=== PATIENT | male | born 1980 | race American Indian/Alaskan Native ===

== ENCOUNTER 2020-11-18 12:09 | Emergency (ER) | payer SELFPAY ==
[~2020-11-18] VITALS: Ht 167.6 cm; Wt 81.7 kg
[2020-11-18 12:38] LABS: BASOPHILS ABSOLUTE AUTO 0.06 K/mm3 (0.00-0.23); BASOPHILS PERCENT AUTO 0 % (0-2); EOSINOPHILS PERCENT AUTO 0 % (0-6); Hematocrit 47.4 % (37.0-53.0); IMMATURE GRAN ABSOLUTE AUTO 0.17 K/mm3 (0.00-0.10); IMMATURE GRAN PERCENT AUTO 1 % (0-1); LYMPHOCYTES ABSOLUTE AUTO 1.56 K/mm3 (0.84-5.20); LYMPHOCYTES PERCENT AUTO 11 % (21-46); MONOCYTES ABSOLUTE AUTO 0.67 K/mm3 (0.16-1.47); MONOCYTES PERCENT AUTO 5 % (4-13); Mean Corpuscular HGB 30.2 pg (26.0-34.0); Mean Corpuscular HGB Conc 33.8 g/dL (31.5-36.5); Mean Corpuscular Volume 89 fL (80-100); Mean Platelet Volume 9.6 fL (9.1-12.4); NEUTROPHILS ABSOLUTE AUTO 11.54 K/mm3 (1.96-9.15); NEUTROPHILS PERCENT AUTO 83 % (41-73); Platelet Count 310 K/mm3 (150-400); RDW Coefficient Variation 12.3 % (11.7-14.2); RDW Standard Deviation 40.5 fL (35.1-46.3)
[2020-11-18 13:02] LABS: Alanine Aminotransfer (ALT/SGP 38 U/L (12-78); Albumin, Blood 3.6 g/dL (3.4-5.0); Albumin/Globulin Ratio 0.9 (0.8-1.8); Alk Phos 131 U/L (50-136); Anion Gap 17 mmol/L (6-16); Aspartate Aminotrans (AST/SGOT 34 U/L (12-37); Bilirubin, Total 1.2 mg/dL (0.1-1.0); Blood Urea Nitrogen 7 mg/dL (8-24); Bun/Creatinine Ratio 7.1 (12.0-20.0); CO2, Blood 21 mmol/L (21-32); Calcium, Blood 8.9 mg/dL (8.5-10.1); Chloride, Blood 90 mmol/L (98-108); Creatinine, Blood 0.98 mg/dL (0.60-1.20); Globulin, Blood 4.2 g/dL (2.2-4.0); Glomerular Filtration Rate >60 (60-); Glucose, Blood 152 mg/dL (70-99); Potassium, Blood 3.9 mmol/L (3.5-5.5); Sodium, Blood 128 mmol/L (136-145); Total Protein, Blood 7.8 g/dL (6.4-8.2)
== END 2020-11-18 15:40 | disposition home or self-care (01) ==
LOC: ER 12:09
PROVIDERS: Emergency Medicine
DX: R56.9 Unspecified convulsions (principal); F17.200 Nicotine dependence, unspecified, uncomplicated
CPT/HCPCS: 70450; 80053; 82947; 85025; 93005; 93010; 99284-25; G0480; J7030

== ENCOUNTER 2021-02-07 09:43 | Emergency (ER) | payer SELFPAY ==
[~2021-02-07] VITALS: Ht 167.6 cm; Wt 74.8 kg
[2021-02-07 10:24] LABS: BASOPHILS ABSOLUTE AUTO 0.05 K/mm3 (0.00-0.23); BASOPHILS PERCENT AUTO 0 % (0-2); EOSINOPHILS ABSOLUTE AUTO 0.03 K/mm3 (0.00-0.68); EOSINOPHILS PERCENT AUTO 0 % (0-6); Hematocrit 46.1 % (37.0-53.0); Hemoglobin 15.7 g/dL (13.5-17.5); IMMATURE GRAN ABSOLUTE AUTO 0.08 K/mm3 (0.00-0.10); IMMATURE GRAN PERCENT AUTO 1 % (0-1); LYMPHOCYTES ABSOLUTE AUTO 2.59 K/mm3 (0.84-5.20); LYMPHOCYTES PERCENT AUTO 22 % (21-46); MONOCYTES ABSOLUTE AUTO 0.74 K/mm3 (0.16-1.47); MONOCYTES PERCENT AUTO 6 % (4-13); Mean Corpuscular HGB 31.8 pg (26.0-34.0); Mean Corpuscular HGB Conc 34.1 g/dL (31.5-36.5); Mean Corpuscular Volume 94 fL (80-100); Mean Platelet Volume 9.1 fL (9.1-12.4); NEUTROPHILS ABSOLUTE AUTO 8.49 K/mm3 (1.96-9.15); NEUTROPHILS PERCENT AUTO 71 % (41-73); Platelet Count 383 K/mm3 (150-400); RDW Coefficient Variation 13.2 % (11.7-14.2); RDW Standard Deviation 45.1 fL (35.1-46.3); Red Blood Cell Count 4.93 M/mm3 (4.30-5.90); White Blood Cell Count 11.98 K/mm3 (4.00-11.30)
[2021-02-07 10:36] LABS: Alanine Aminotransfer (ALT/SGP 41 U/L (12-78); Albumin, Blood 3.2 g/dL (3.4-5.0); Albumin/Globulin Ratio 0.8 (0.8-1.8); Alk Phos 113 U/L (50-136); Anion Gap 20 mmol/L (6-16); Aspartate Aminotrans (AST/SGOT 46 U/L (12-37); Bilirubin, Total 0.8 mg/dL (0.1-1.0); Blood Urea Nitrogen 8 mg/dL (8-24); Bun/Creatinine Ratio 8.1 (12.0-20.0); CO2, Blood 17 mmol/L (21-32); Calcium, Blood 8.6 mg/dL (8.5-10.1); Chloride, Blood 97 mmol/L (98-108); Creatinine, Blood 0.99 mg/dL (0.60-1.20); Globulin, Blood 4.1 g/dL (2.2-4.0); Glomerular Filtration Rate >60 (60-); Glucose, Blood 193 mg/dL (70-99); Potassium, Blood 3.9 mmol/L (3.5-5.5); Sodium, Blood 134 mmol/L (136-145); Total Protein, Blood 7.3 g/dL (6.4-8.2)
[2021-02-07] MEDS ORDERED: LEVE500 PO (11:49)
== END 2021-02-07 12:18 | disposition home or self-care (01) ==
LOC: ER 09:43
PROVIDERS: Emergency Medicine
DX: R56.9 Unspecified convulsions (principal); F17.200 Nicotine dependence, unspecified, uncomplicated; Z79.899 Other long term (current) drug therapy
CPT/HCPCS: 36415; 70450; 80053; 82947; 85025; 96360; 99285-25; A9270; J7030

== ENCOUNTER 2023-07-11 10:40 | Inpatient (IN) | payer OTHER ==
[~2023-07-11] VITALS: Ht 167.6 cm; Wt 90.7 kg
[~2023-07-11 10:40] MED LIST: LEVE500 PO
[2023-07-11] MEDS ORDERED: IBUP200 (11:01)
[2023-07-11] MEDS ORDERED: ACET325 (11:01)
[2023-07-11 11:17] LABS: BASOPHILS PERCENT AUTO 0 % (0-2); EOSINOPHILS PERCENT AUTO 0 % (0-6); Hematocrit 41.6 % (37.0-53.0); Hemoglobin 14.3 g/dL (13.5-17.5); IMMATURE GRAN ABSOLUTE AUTO 0.27 K/mm3 (0.00-0.10); IMMATURE GRAN PERCENT AUTO 1 % (0-1); LYMPHOCYTES ABSOLUTE AUTO 1.55 K/mm3 (0.84-5.20); LYMPHOCYTES PERCENT AUTO 7 % (21-46); MONOCYTES PERCENT AUTO 10 % (4-13); Mean Corpuscular HGB 29.1 pg (26.0-34.0); Mean Corpuscular HGB Conc 34.4 g/dL (31.5-36.5); Mean Corpuscular Volume 85 fL (80-100); Mean Platelet Volume 9.6 fL (9.1-12.4); NEUTROPHILS ABSOLUTE AUTO 18.76 K/mm3 (1.96-9.15); NEUTROPHILS PERCENT AUTO 81 % (41-73); Platelet Count 545 K/mm3 (150-400); RDW Coefficient Variation 13.1 % (11.7-14.2); RDW Standard Deviation 40.7 fL (35.1-46.3); Red Blood Cell Count 4.91 M/mm3 (4.30-5.90); White Blood Cell Count 23.08 K/mm3 (4.00-11.30)
[2023-07-11 11:53] LABS: Albumin, Blood 2.4 g/dL (3.4-5.0); Albumin/Globulin Ratio 0.4 (0.8-1.8); Bilirubin, Total 0.6 mg/dL (0.1-1.0); Bun/Creatinine Ratio 10.2 (12.0-20.0); Creatinine, Blood 0.98 mg/dL (0.60-1.20); Globulin, Blood 5.7 g/dL (2.2-4.0); Potassium, Blood 3.7 mmol/L (3.5-5.5); Total Protein, Blood 8.1 g/dL (6.4-8.2)
[2023-07-11 11:55] LABS: Influenza A, PCR NEGATIVE (NEGATIVE); Influenza B, PCR NEGATIVE (NEGATIVE); Resp Syncytial Virus, PCR NEGATIVE (NEGATIVE); SARS-Cov-2 (COVID-19) PCR, MMC NEGATIVE (NEGATIVE)
[2023-07-11 14:31] VITALS: BP 114/77
--- NOTE | 2023-07-11 15:59 | NUR ---
PT ARRIVED TO THE ROOM AT APPROXIMATELY 1430. PT ALERT AND ORIENTED. PAIN MEDICATION GIVEN BY MILI BEE. FAMILY AT BEDSIDE FOR SUPPORT. PT RESTING IN BED WITH CALL LIGHT IN REACH.
[2023-07-11 19:15] LABS: Source, Urine Clean Catch
[2023-07-11 19:21] LABS: Bilirubin, Urine Neg (Neg); Blood, Urine 1+ (Neg); Color, Urine Yellow (P-Yellow); Glucose Qualitative, Urine Neg (Neg); Ketones, Urine Neg (Neg); Leukocyte Esterase, Urine 1+ (Neg); Nitrite, Urine Neg (Neg); Protein, Urine 2+ (Neg); Urobilinogen, Urine 2+ (Normal)
[2023-07-11 19:34] LABS: Appearance, Urine Clear (Clear)
[2023-07-11 19:36] LABS: Bacteria Few /hpf; Red Blood Cells, Urine 0-2 /hpf (0-2); Squamous Epithelial Cells Not Seen /hpf (Few); White Blood Cells, Urine 0-2 /hpf (0-5)
[2023-07-11 19:56] VITALS: BP 134/80
--- NOTE | 2023-07-11 20:05 | NUR ---
SHIFT SUMMARY PT ADMITTED THIS EVENING R/T RUPTURED APPY. PER DR. ROLLINS THE PLAN IS FOR PT TO NPO FOR POSSIBLE SURGERY TOMORROW. PAIN MANAGED WITH DILAUDID. PT IS INDEPENDENT IN THE ROOM. S/O AT THE BEDSIDE FOR SUPPORT. REPORT GIVEN TO LORENA BEE.
[2023-07-12 03:29] VITALS: BP 110/73
[2023-07-12 07:06] VITALS: BP 120/76
--- NOTE | 2023-07-12 07:27 | NUR ---
PT VS T/O NIGHT. PAIN MGD W/1MG IV DILAUDID W/REP RELIEF. ABD REMAINS FIRM AND DISTENDED, PT DENIED N/V. PT NPO POST MIDNIGHT AWAITING SURGERY PLANS. IVF AND ABX CONT PER ORDERS.
--- NOTE | 2023-07-12 10:32 | NUR ---
DR HANNON IN TO CONSULT PT. RADIOLOGY CALLED AND SAID PLAN WILL BE TO TAKE PT FOR DRAIN PLACEMENT AT APROX 1400. PER RADIOLOGY OK FOR A FEW ICE CHIPS. PT UPDATED ON TIME FOR PROCEDURE
[2023-07-12 11:18] LABS: International Normalized Ratio 1.07; Prothrombin Time Results 11.2 Sec (9.7-11.5)
[2023-07-12 14:58] VITALS: BP 124/84
[2023-07-12 19:17] VITALS: BP 133/82
--- NOTE | 2023-07-12 19:54 | NUR ---
shift summary PT HAS DONE WELL SINCE ARRIVAL BACK TO UNIT FOLLOWING DRAIN PLACEMENT. 60ML PURULENT DRAINAGE EMPTIED FROM URACIL DRAIN. PAIN WELL MANAGED W/IV MEDS. TOLERATING CLEAR LIQUIDS WITH NO N/V. ABD MOD DISTENDED, NO BM.
[2023-07-13 04:03] VITALS: BP 127/81
[2023-07-13 04:23] LABS: BASOPHILS PERCENT AUTO 1 % (0-2); EOSINOPHILS PERCENT AUTO 0 % (0-6); Hematocrit 33.3 % (37.0-53.0); Hemoglobin 11.2 g/dL (13.5-17.5); IMMATURE GRAN ABSOLUTE AUTO 0.83 K/mm3 (0.00-0.10); IMMATURE GRAN PERCENT AUTO 4 % (0-1); LYMPHOCYTES ABSOLUTE AUTO 1.25 K/mm3 (0.84-5.20); LYMPHOCYTES PERCENT AUTO 6 % (21-46); MONOCYTES ABSOLUTE AUTO 1.23 K/mm3 (0.16-1.47); MONOCYTES PERCENT AUTO 6 % (4-13); Mean Corpuscular HGB 29.1 pg (26.0-34.0); Mean Corpuscular HGB Conc 33.6 g/dL (31.5-36.5); Mean Corpuscular Volume 87 fL (80-100); Mean Platelet Volume 9.2 fL (9.1-12.4); NEUTROPHILS ABSOLUTE AUTO 17.36 K/mm3 (1.96-9.15); NEUTROPHILS PERCENT AUTO 84 % (41-73); Platelet Count 473 K/mm3 (150-400); RDW Coefficient Variation 13.8 % (11.7-14.2); RDW Standard Deviation 43.5 fL (35.1-46.3); Red Blood Cell Count 3.85 M/mm3 (4.30-5.90); White Blood Cell Count 20.77 K/mm3 (4.00-11.30)
[2023-07-13 04:46] LABS: Bun/Creatinine Ratio 4.5 (12.0-20.0); Creatinine, Blood 0.89 mg/dL (0.60-1.20); Magnesium, Blood 1.8 mg/dL (1.6-2.4); Potassium, Blood 3.3 mmol/L (3.5-5.5)
--- NOTE | 2023-07-13 05:27 | NUR ---
SHIFT SUMMARY PT RESTED T/O NIGHT. PAIN CONTROLLED WITH IV PAIN MEDS PER EMAR. PT REPORTED MULTIPLE LOOSE STOOLS T/O NIGHT. ABDOMEN MILDLY DISTENTED. URECIAL DRAIN PUT OUT 40ML PURULENT FLUID. DRAIN SITE C/D/I. NO OTHER CONCERNS AT THIS TIME. CALL LIGHT WITHIN REACH.
[2023-07-13 07:45] VITALS: BP 138/84
[2023-07-13 14:11] VITALS: BP 137/78
[2023-07-13 19:56] VITALS: BP 121/76
[2023-07-13 23:50] VITALS: BP 137/91
--- NOTE | 2023-07-14 02:39 | NUR ---
THIS RN AGREES WITH HELICOPTER PILOT SHIFT ASSESSMENT.
[2023-07-14 04:11] VITALS: BP 122/80
--- NOTE | 2023-07-14 05:44 | NUR ---
SHIFT SUMMARY. PT REPORTED REST DURING THE NIGHT. PT WOKE EASILY UPON ROOM ENTRY AT EACH ROUND. ABDOMINAL PAIN RELIEVED WITH ORAL AND IV PAIN MEDICATION T/O SHIFT. ABX GIVEN PER JAN. PT VOIDING URINE AND TOLERATING FULL LIQUID DIET. NO BM THIS SHIFT. ABDOMEN MODERATLY DISTENDED, URESIL DRAIN PRODUCED 30ML OF DRAINAGE THIS SHIFT. DRAIN SITE IS CLEAN, DRY, INTACT, AND DRAINING TO GRAVITY. REDNESS AND WARMTH NOTED ON RIGHT SIDE ABDOMEN ALONG WITH TWO INTACT BLISTERS.
[2023-07-14 07:15] VITALS: BP 122/77
[2023-07-14 14:29] VITALS: BP 113/76
--- NOTE | 2023-07-14 17:00 | NUR ---
SUMMARY: NO ACUTE CHANGE TODAY. VSS, A/O, PT INDEPENDENT IN ROOM. URESIL DRAIN COMPRESSED AND WNL. REDNESS OUTLINED TODAY AT R FLANK, DR. HANNON AWARE. X2 BLISTERS COVERED WITH GAUZE AND TEGADERM. DRAIN SECURED WITH TAPE. THERE IS ABOUT 10ML OF SS DRAINAGE IN BAG, DID NOT EMPTY THIS SHIFT SO THAT COLOR CAN MORE EASILY BE MONITORED. PT HAS HAD MINIMAL PAIN THIS SHIFT, NO N/V. ABLE TO EAT REGULAR DIET. IV ANTIBIOTICS INFUSED. NO SAFETY CONCERNS.
[2023-07-14 19:42] VITALS: BP 151/78
[2023-07-15 04:29] VITALS: BP 134/84
[2023-07-15 04:43] LABS: BASOPHILS PERCENT AUTO 1 % (0-2); EOSINOPHILS ABSOLUTE AUTO 0.17 K/mm3 (0.00-0.68); EOSINOPHILS PERCENT AUTO 1 % (0-6); Hematocrit 30.9 % (37.0-53.0); Hemoglobin 10.2 g/dL (13.5-17.5); IMMATURE GRAN PERCENT AUTO 4 % (0-1); LYMPHOCYTES ABSOLUTE AUTO 1.35 K/mm3 (0.84-5.20); LYMPHOCYTES PERCENT AUTO 7 % (21-46); MONOCYTES ABSOLUTE AUTO 1.01 K/mm3 (0.16-1.47); MONOCYTES PERCENT AUTO 5 % (4-13); Mean Corpuscular HGB 28.9 pg (26.0-34.0); Mean Corpuscular Volume 88 fL (80-100); Mean Platelet Volume 9.2 fL (9.1-12.4); NEUTROPHILS PERCENT AUTO 82 % (41-73); Platelet Count 577 K/mm3 (150-400); RDW Coefficient Variation 14.2 % (11.7-14.2); RDW Standard Deviation 45.6 fL (35.1-46.3); Red Blood Cell Count 3.53 M/mm3 (4.30-5.90); White Blood Cell Count 18.63 K/mm3 (4.00-11.30)
--- NOTE | 2023-07-15 06:20 | NUR ---
SHIFT SUMMARY. PT IS NOW POD #3 POST URASIL DRAIN PLACEMENT AFTER A RUPTURED APPENDIX. PT REPORTED REST THROUGHOUT THE NIGHT. PT WAS INTERMITTENTLY AWAKE DURING ROUNDS. PT PRODUCED 15 ML OF SEROUSANGINOUS DRAINAGE FROM DRAIN. DRAIN IS COMPRESSED AND DRAINING TO GRAVITY. PT HAS MODERATE ABDOMINAL DISTENSION, IS PASSING GAS, AND PRODUCED 2 UNWITNESSED FORMED STOOLS. PT IS VOIDING URINE APPROPRIATELY. PT IS TOLERATING FLUIDS AND MOVES FREELY ABOUT THE ROOM. REDNESS ON RIGHT FLANK HAS NOT PROGRESSED PAST MARKED LINES PLACED DURING PREVIOUS SHIFT. DRESSINGS OVER BLISTERS INTACT. DR. HANNON IS AWARE OF FLANK REDNESS AND BLISTERS. PT'S PAIN HAS BEEN CONTROLLED WITH IV AND ORAL PAIN MEDICATION PER EMAR. ABX INFUSED PER EMAR.
[2023-07-15 07:29] VITALS: BP 134/90
--- NOTE | 2023-07-15 08:04 | NUR ---
DR HANNON IN TO SEE PT.
[2023-07-15 15:14] VITALS: BP 138/84
--- NOTE | 2023-07-15 18:32 | NUR ---
SUMMARY PT HAD SCANT AMOUNT DRAINAGE FROM URESIL DRAIN; COMPRESSED. REDNESS HAS NOT PROGRESSED BEYOND OUTLINED AREA. MEDICATED PT PER ORDERS T/O DAY FOR RLQ PAIN. PT DECLINED PO PAIN MEDS, REQUESTING IV DILAUDID T/O DAY. TOLERATED WELL. INDEPENDENT IN ROOM, AMBULATED IN HALLS W/S.O. TOLERATING PO. IV ABX INFUSING PER ORDERS.
[2023-07-16 02:33] VITALS: BP 126/90
--- NOTE | 2023-07-16 04:41 | NUR ---
SHIFT SUMMARY PT POD 4 URACIL DRAIN PLACEMENT AFTER RUPTURED APPENDIX. DRAIN IS COMPRESSED AND DRAINING TO GRAVITY. PT IS A&O X4. VS WNL FOR PT. PT SLEPT WELL THROUGHOUT THE NIGHT. PAIN TOLERABLE WITH MEDICATION PER EMAR. NO ACUTE CHANGES OVERNIGHT. PT ANTICIPATED D/C TODAY. CALL LIGHT WITHIN REACH, BED IN LOWEST POSITION, WILL REPORT TO DAY NURSE.
[2023-07-16 04:46] LABS: Hematocrit 32.6 % (37.0-53.0); Hemoglobin 10.7 g/dL (13.5-17.5); Mean Corpuscular HGB 28.8 pg (26.0-34.0); Mean Corpuscular HGB Conc 32.8 g/dL (31.5-36.5); Mean Corpuscular Volume 88 fL (80-100); Mean Platelet Volume 8.9 fL (9.1-12.4); Platelet Count 634 K/mm3 (150-400); RDW Coefficient Variation 14.3 % (11.7-14.2); RDW Standard Deviation 46.2 fL (35.1-46.3); Red Blood Cell Count 3.71 M/mm3 (4.30-5.90); White Blood Cell Count 15.95 K/mm3 (4.00-11.30)
[2023-07-16 05:40] LABS: BAND PERCENT MAN 4 % (0-8); BASOPHILS PERCENT MAN 0 % (0-2); EOSINOPHILS PERCENT MAN 0 % (0-6); LYMPHOCYTES ABSOLUTE MAN 0.47 K/mm3 (0.84-5.20); LYMPHOCYTES PERCENT MAN 3 % (21-46); METAMYELOCYTE ABSOLUTE MAN 0.15 K/mm3 (0.00-0.00); METAMYELOCYTE PERCENT MAN 1 % (0-0); MONOCYTES ABSOLUTE MAN 0.95 K/mm3 (0.16-1.47); MONOCYTES PERCENT MAN 6 % (4-13); MYELOCYTE ABSOLUTE MAN 0.31 K/mm3 (0.00-0.00); MYELOCYTE PERCENT MAN 2 % (0-0); NEUTROPHILS ABSOLUTE MAN 14.03 K/mm3 (1.96-9.15); SEG NEUTROPHILS PERCENT MAN 84 % (41-73); TOTAL CELLS COUNTED 100
[2023-07-16 07:46] VITALS: BP 138/82
--- NOTE | 2023-07-16 10:57 | NUR ---
DISCHARGE: VSS, PACKET PRINTED AND PT EDUCATED. PT GIVEN EXTRA [employer]IPORE DRESSINGS FOR HOME. NO MEDS NEEDED TO BE FAXED. IV DC'D WNL, TIP INTACT. PT LEFT UNIT WITH CAREGIVER AT 1050
[2023-07-16] MEDS ORDERED: AMOCLA875 PO (12:15)
[2023-07-16] MEDS ORDERED: HYDR1TAB94 PO (12:16)
--- NOTE | 2023-07-16 13:00 | NUR ---
DISCHARGE: VSS AND SURGICAL SITE WNL. DC PACKET PRINTED AND PT EDUCATED. IV DC'D WNL, TIP INTACT. PT GIVEN SCRIPTS FOR N0RCO AND AUGMENTIN
--- NOTE | 2023-07-16 14:44 | NUR ---
PT LEFT UNIT ON FOOT AT 1430 WITH SPOUSE
== END 2023-07-16 14:30 | disposition home or self-care (01) | DRG 373 ==
LOC: ER 10:40 → SURS 10:41
PROVIDERS: Student in an Organized Health Care Education/Training Program; Surgery; ADMIT Surgery
PROC: 0D9J30Z Drainage of Appendix with Drainage Device, Percutaneous Approach (ICD-10-PCS; principal; 2023-07-12)
DX: K35.33 Acute appendicitis with perforation, localized peritonitis, and gangrene, with abscess (principal); H54.62 Unqualified visual loss, left eye, normal vision right eye; Z20.822 Contact with and (suspected) exposure to COVID-19; B95.4 Other streptococcus as the cause of diseases classified elsewhere; B96.89 Other specified bacterial agents as the cause of diseases classified elsewhere; Z79.899 Other long term (current) drug therapy; Z87.891 Personal history of nicotine dependence; Z87.820 Personal history of traumatic brain injury
CPT/HCPCS: 0241U; 36415; 49405; 71045; 74177; 80048; 80053; 81001; 83690; 83735; 85025; 85610; 87070; 87075; 87076; 87086; 87147; 87205; 93005; 93010; 96361-59; 96365-59; 96375; 99285-25; A9270; G0378; J1170; J1650; J1885; J2543; J7030; Q9967

== ENCOUNTER 2023-09-05 02:12 | Emergency (ER) | payer OTHER ==
[~2023-09-05] VITALS: Ht 167.6 cm; Wt 83.9 kg
[~2023-09-05 02:12] MED LIST changes: +ACET325; +AMOCLA875 PO; +HYDR1TAB94 PO; +IBUP200
[2023-09-05 03:08] LABS: BASOPHILS ABSOLUTE AUTO 0.07 K/mm3 (0.00-0.23); BASOPHILS PERCENT AUTO 0 % (0-2); Hematocrit 44.6 % (37.0-53.0); LYMPHOCYTES ABSOLUTE AUTO 1.87 K/mm3 (0.84-5.20); LYMPHOCYTES PERCENT AUTO 10 % (21-46); MONOCYTES ABSOLUTE AUTO 0.89 K/mm3 (0.16-1.47); MONOCYTES PERCENT AUTO 5 % (4-13); Mean Corpuscular HGB 28.7 pg (26.0-34.0); Mean Corpuscular HGB Conc 35.9 g/dL (31.5-36.5); Mean Corpuscular Volume 80 fL (80-100); Mean Platelet Volume 9.1 fL (9.1-12.4); Platelet Count 356 K/mm3 (150-400); RDW Coefficient Variation 12.7 % (11.7-14.2); Red Blood Cell Count 5.57 M/mm3 (4.30-5.90); White Blood Cell Count 18.19 K/mm3 (4.00-11.30)
[2023-09-05 03:11] LABS: EOSINOPHILS ABSOLUTE AUTO 0.28 K/mm3 (0.00-0.68); EOSINOPHILS PERCENT AUTO 2 % (0-6); IMMATURE GRAN ABSOLUTE AUTO 0.15 K/mm3 (0.00-0.10); IMMATURE GRAN PERCENT AUTO 1 % (0-1); NEUTROPHILS ABSOLUTE AUTO 14.93 K/mm3 (1.96-9.15); NEUTROPHILS PERCENT AUTO 82 % (41-73)
[2023-09-05 03:21] LABS: Alanine Aminotransfer (ALT/SGP 72 U/L (12-78); Albumin, Blood 3.7 g/dL (3.4-5.0); Alk Phos 111 U/L (50-136); Anion Gap 14 mmol/L (6-16); Aspartate Aminotrans (AST/SGOT 45 U/L (12-37); Bilirubin, Total 0.9 mg/dL (0.1-1.0); Blood Urea Nitrogen 12 mg/dL (8-24); Bun/Creatinine Ratio 12.1 (12.0-20.0); CO2, Blood 25 mmol/L (21-32); Calcium, Blood 8.6 mg/dL (8.5-10.1); Chloride, Blood 95 mmol/L (98-108); Creatinine, Blood 0.99 mg/dL (0.60-1.20); Globulin, Blood 3.7 g/dL (2.2-4.0); Glomerular Filtration Rate 96 (60-); Glucose, Blood 157 mg/dL (70-99); Potassium, Blood 3.3 mmol/L (3.5-5.5); Sodium, Blood 134 mmol/L (136-145); Total Protein, Blood 7.4 g/dL (6.4-8.2)
[2023-09-05 03:43] LABS: Ethanol (Alcohol), Blood, Med <3 mg/dL
[2023-09-05] MEDS ORDERED: CHLO25 PO (06:45)
[2023-09-05 07:03] VITALS: BP 148/81
== END 2023-09-05 07:04 | disposition left against medical advice (07) ==
LOC: ER 02:12
PROVIDERS: Student in an Organized Health Care Education/Training Program
DX: G40.89 Other seizures (principal); F10.239 Alcohol dependence with withdrawal, unspecified; D72.829 Elevated white blood cell count, unspecified; E87.6 Hypokalemia; Y90.0 Blood alcohol level of less than 20 mg/100 ml; F17.210 Nicotine dependence, cigarettes, uncomplicated
CPT/HCPCS: 80053; 85025; 93005; 93010; 99285-25; A9270

== ENCOUNTER 2023-11-24 13:51 | Inpatient (IN) | payer OTHER ==
[~2023-11-24] VITALS: Ht 167.6 cm; Wt 85.2 kg
[~2023-11-24 13:51] MED LIST changes: +CHLO25 PO
[2023-11-24 15:12] LABS: BASOPHILS ABSOLUTE AUTO 0.05 K/mm3 (0.00-0.23); BASOPHILS PERCENT AUTO 0 % (0-2); EOSINOPHILS ABSOLUTE AUTO 0.02 K/mm3 (0.00-0.68); EOSINOPHILS PERCENT AUTO 0 % (0-6); Hematocrit 43.8 % (37.0-53.0); Hemoglobin 14.8 g/dL (13.5-17.5); IMMATURE GRAN ABSOLUTE AUTO 0.11 K/mm3 (0.00-0.10); IMMATURE GRAN PERCENT AUTO 1 % (0-1); LYMPHOCYTES ABSOLUTE AUTO 1.39 K/mm3 (0.84-5.20); LYMPHOCYTES PERCENT AUTO 8 % (21-46); MONOCYTES ABSOLUTE AUTO 1.33 K/mm3 (0.16-1.47); MONOCYTES PERCENT AUTO 8 % (4-13); Mean Corpuscular HGB 28.2 pg (26.0-34.0); Mean Corpuscular HGB Conc 33.8 g/dL (31.5-36.5); Mean Corpuscular Volume 84 fL (80-100); Mean Platelet Volume 9.2 fL (9.1-12.4); NEUTROPHILS ABSOLUTE AUTO 14.14 K/mm3 (1.96-9.15); NEUTROPHILS PERCENT AUTO 83 % (41-73); Platelet Count 511 K/mm3 (150-400); RDW Coefficient Variation 12.2 % (11.7-14.2); RDW Standard Deviation 37.3 fL (35.1-46.3); Red Blood Cell Count 5.24 M/mm3 (4.30-5.90); White Blood Cell Count 17.04 K/mm3 (4.00-11.30)
[2023-11-24 15:43] LABS: Albumin, Blood 2.9 g/dL (3.4-5.0); Albumin/Globulin Ratio 0.5 (0.8-1.8); Bilirubin, Total 0.7 mg/dL (0.1-1.0); Bun/Creatinine Ratio 9.4 (12.0-20.0); Calcium, Blood 9.8 mg/dL (8.5-10.1); Creatinine, Blood 0.96 mg/dL (0.60-1.20); Globulin, Blood 5.8 g/dL (2.2-4.0); Potassium, Blood 3.9 mmol/L (3.5-5.5); Total Protein, Blood 8.7 g/dL (6.4-8.2)
[2023-11-24 20:28] LABS: U Amphetamine Screen Not Detected; U Barbituate Screen Not Detected; U Benzodiazapine Screen Not Detected; U Buprenorphine Screen Not Detected; U Cannabinoids Screen Not Detected; U Cocaine Screen Not Detected; U Methadone Screen Not Detected; U Methamphetamine Screen Not Detected; U Opiates Screen Not Detected; U Oxycodone Screen Not Detected; U Phencyclidine Screen Not Detected
[2023-11-24 21:49] VITALS: BP 138/82
--- NOTE | 2023-11-24 22:07 | NUR ---
ARRIVAL PT NEW ADMIT FROM ER. ARRIVED IN NO DISTRESS, A/OX4. VSS. REPORTING RLQ PAIN. DENIES N/V.
[2023-11-25 03:01] VITALS: BP 122/79
[2023-11-25 05:31] LABS: Hematocrit 37.1 % (37.0-53.0); Hemoglobin 12.4 g/dL (13.5-17.5); Mean Corpuscular HGB 28.2 pg (26.0-34.0); Mean Corpuscular HGB Conc 33.4 g/dL (31.5-36.5); Mean Corpuscular Volume 84 fL (80-100); Mean Platelet Volume 9.5 fL (9.1-12.4); Platelet Count 436 K/mm3 (150-400); RDW Coefficient Variation 12.4 % (11.7-14.2); RDW Standard Deviation 37.6 fL (35.1-46.3); White Blood Cell Count 13.28 K/mm3 (4.00-11.30)
[2023-11-25 06:03] LABS: Albumin, Blood 2.2 g/dL (3.4-5.0); Albumin/Globulin Ratio 0.5 (0.8-1.8); Bilirubin, Total 0.6 mg/dL (0.1-1.0); Bun/Creatinine Ratio 9.6 (12.0-20.0); Calcium, Blood 8.7 mg/dL (8.5-10.1); Creatinine, Blood 0.94 mg/dL (0.60-1.20); Globulin, Blood 4.4 g/dL (2.2-4.0); Potassium, Blood 3.7 mmol/L (3.5-5.5); Total Protein, Blood 6.6 g/dL (6.4-8.2)
--- NOTE | 2023-11-25 06:31 | NUR ---
SHIFT SUMMARY VSS. PT SLEPT ON AND OFF T/O THE NIGHT. MEDICATED FOR PAIN WITH OXY AND TYLENOL WITH TOLLERABLE RESULTS. PT HAS BEEN NPO SINCE 0000 IN ANTICIPATION FOR POTENTIAL PROCEEDURE. HAS BEEN INDEP IN ROOM T/O THE NIGHT. NO ACUTE EVENTS NOTED.
[2023-11-25 08:16] VITALS: BP 126/75
[2023-11-25 10:54] LABS: International Normalized Ratio 1.01; Prothrombin Time Results 10.6 Sec (9.7-11.5)
[2023-11-25 14:37] VITALS: BP 134/78
--- NOTE | 2023-11-25 18:42 | NUR ---
SHIFT SUMMARY PATIENT HAD DRAIN PLACED TODAY WITH SCANT BRWN DRNG IN TUBING. MEDICATED FOR PAIN, UP AND TOLERATING PO. DENIES N/V. IND IN ROOM. CALL LIGHT IN REACH
[2023-11-25 19:34] VITALS: BP 129/86
[2023-11-26 00:06] VITALS: BP 121/78
[2023-11-26 04:35] VITALS: BP 123/83
--- NOTE | 2023-11-26 04:58 | NUR ---
SHIFT SUMMARY NO ACUTE CHANGES NOTED, VSS, ON RA, TOLERATING PO INTAKE, VOIDING WNL, INDEPENDENT IN ROOM, PAIN MANAGED PER EMAR, DRAIN SITE C/D/I, SMALL AMOUNT OF SANGUINOUS FLUID NOTED IN COLLECTION BAG, ABX INFUSED PER EMAR, PT RESTING QUIETLY IN BED AT THIS TIME, CALL LIGHT IN REACH, WCTM & REPORT TO DAY RN
[2023-11-26 07:22] VITALS: BP 125/85
[2023-11-26 14:43] VITALS: BP 120/80
--- NOTE | 2023-11-26 16:20 | NUR ---
SHIFT SUMMARY PATIENT AOX4, IND IN ROOM. DR. WALTRES IN TO FLUSH DRAIN TODAY. TOTAL OF 30 ML OUTPUT OF S/S, THICK DRNG. TUBING IS CLEAR. MEDICATED FOR PAIN T/O SHIFT TOLERATING WELL. UP WALKING IN ROOM TOLERATING PO. IV ABX INFUSED. NO NEEDS AT THIS TIME. CALL LIGHT IN REACH.
[2023-11-26 19:39] VITALS: BP 128/81
[2023-11-27 00:14] VITALS: BP 120/81
[2023-11-27 04:09] VITALS: BP 128/86
--- NOTE | 2023-11-27 06:11 | NUR ---
SHIFT SUMMARY S/P DRAIN PLACEMENT. NO ACUTE CHANGES OVERNIGHT. VS WNL FOR PT, A&O x4. TOLERATING ORALS. INDEPENDENT AMBULATION & TOILETING. PT MEDICATED FOR PAIN & ABX INFUSING PER EMAR. PT TO CT AT APPOX 0530 THIS AM. DRAIN SITE C/D/I, SMALL AMOUNT SANGUINEOUS FLUID IN COLLECTION BAG. ANTICIPATED D/C LATER TODAY IF DRAIN IS REMOVED PER SURGICAL CONSULT. PT WATCHING TV IN BED, CALL LIGHT WITHIN REACH, BED IN LOWEST POSITION, WILL REPRT TO DAY RN.
[2023-11-27 06:15] LABS: Hematocrit 37.2 % (37.0-53.0); Hemoglobin 11.9 g/dL (13.5-17.5); Mean Corpuscular HGB 27.5 pg (26.0-34.0); Mean Corpuscular Volume 86 fL (80-100); Mean Platelet Volume 8.9 fL (9.1-12.4); Platelet Count 456 K/mm3 (150-400); RDW Coefficient Variation 12.8 % (11.7-14.2); RDW Standard Deviation 40.1 fL (35.1-46.3); Red Blood Cell Count 4.32 M/mm3 (4.30-5.90); White Blood Cell Count 8.72 K/mm3 (4.00-11.30)
[2023-11-27 06:36] LABS: Albumin, Blood 2.3 g/dL (3.4-5.0); Albumin/Globulin Ratio 0.5 (0.8-1.8); Bilirubin, Total 0.2 mg/dL (0.1-1.0); Bun/Creatinine Ratio 10.1 (12.0-20.0); Calcium, Blood 8.5 mg/dL (8.5-10.1); Creatinine, Blood 0.99 mg/dL (0.60-1.20); Globulin, Blood 4.5 g/dL (2.2-4.0); Potassium, Blood 4.3 mmol/L (3.5-5.5); Total Protein, Blood 6.8 g/dL (6.4-8.2)
[2023-11-27 07:43] VITALS: BP 113/75
[2023-11-27] MEDS ORDERED: OXYC5 PO (12:47)
[2023-11-27] MEDS ORDERED: AMOCLA875 PO (12:48)
--- NOTE | 2023-11-27 13:42 | NUR ---
DC'D HOME, DC INSTRUCTIONS GIVEN, VERBALIZED UNDERSTANDING.
--- NOTE | 2023-11-27 14:41 | NUR ---
DC'D HOME W/ SIG. OTHER, BELONGINGS GIVEN TO PT.
== END 2023-11-27 14:53 | disposition home or self-care (01) | DRG 871 ==
LOC: ER 13:51 → ERHOLD 21:20 → SURS 21:20
PROVIDERS: Internal Medicine; Nurse Practitioner Acute Care; Physician Assistant; Surgery; ADMIT Internal Medicine
DX: A41.9 Sepsis, unspecified organism (principal); K35.33 Acute appendicitis with perforation, localized peritonitis, and gangrene, with abscess; F17.200 Nicotine dependence, unspecified, uncomplicated; B96.6 Bacteroides fragilis [B. fragilis] as the cause of diseases classified elsewhere; Z87.820 Personal history of traumatic brain injury
CPT/HCPCS: 36415; 49406; 74177; 80053; 83605; 85025; 85027; 85610; 85730; 87040; 87070; 87075; 87076; 87185; 87205; 96365; 99285-25; A9270; J2543; J7030; Q9967

== ENCOUNTER 2023-12-30 07:11 | Inpatient (IN) | payer OTHER ==
[~2023-12-30] VITALS: Ht 167.6 cm; Wt 85.0 kg
[~2023-12-30 07:11] MED LIST changes: +OXYC5 PO
[2023-12-30 08:52] LABS: BASOPHILS ABSOLUTE AUTO 0.05 K/mm3 (0.00-0.23); BASOPHILS PERCENT AUTO 0 % (0-2); EOSINOPHILS ABSOLUTE AUTO 0.02 K/mm3 (0.00-0.68); EOSINOPHILS PERCENT AUTO 0 % (0-6); Hematocrit 41.7 % (37.0-53.0); Hemoglobin 14.2 g/dL (13.5-17.5); IMMATURE GRAN PERCENT AUTO 1 % (0-1); LYMPHOCYTES ABSOLUTE AUTO 0.92 K/mm3 (0.84-5.20); LYMPHOCYTES PERCENT AUTO 5 % (21-46); MONOCYTES ABSOLUTE AUTO 1.07 K/mm3 (0.16-1.47); MONOCYTES PERCENT AUTO 6 % (4-13); Mean Corpuscular HGB 27.8 pg (26.0-34.0); Mean Corpuscular HGB Conc 34.1 g/dL (31.5-36.5); Mean Corpuscular Volume 82 fL (80-100); NEUTROPHILS ABSOLUTE AUTO 16.57 K/mm3 (1.96-9.15); NEUTROPHILS PERCENT AUTO 89 % (41-73); RDW Coefficient Variation 12.9 % (11.7-14.2); RDW Standard Deviation 38.4 fL (35.1-46.3); Red Blood Cell Count 5.11 M/mm3 (4.30-5.90); White Blood Cell Count 18.73 K/mm3 (4.00-11.30)
[2023-12-30 09:05] LABS: Albumin/Globulin Ratio 0.6 (0.8-1.8); Bilirubin, Total 0.9 mg/dL (0.1-1.0); Bun/Creatinine Ratio 11.3 (12.0-20.0); Calcium, Blood 9.2 mg/dL (8.5-10.1); Creatinine, Blood 0.88 mg/dL (0.60-1.20); Globulin, Blood 5.3 g/dL (2.2-4.0); Potassium, Blood 4.5 mmol/L (3.5-5.5); Total Protein, Blood 8.3 g/dL (6.4-8.2)
[2023-12-30 09:15] LABS: Mean Platelet Volume 9.5 fL (9.1-12.4); Platelet Count 410 K/mm3 (150-400)
[2023-12-30] MEDS ORDERED: Ondansetron HCl 2 MG / ML 2ML Vial IV ONE (09:35)
[2023-12-30] MEDS ORDERED: NS 1,000 ML IV SCH (09:35)
[2023-12-30] MEDS ORDERED: Ketorolac Tromethamine 30mg Vial IV ONE (09:35)
[2023-12-30] MEDS ORDERED: Piperacillin/Tazobactam Sod 4.5 GM in NS 100 ML IV ONE (11:20)
[2023-12-30] MEDS ORDERED: Lactated Ringer's 1,000 ML IV SCH (11:55)
[2023-12-30] MEDS ORDERED: HYDROcodone 5-APAP 325 TAB PO PRN (11:55)
[2023-12-30] MEDS ORDERED: FLU VACC QS2023-24(6MOS UP)/PF 60 MCG/0.5 ML SYRINGE IM ONE (11:55)
[2023-12-30] MEDS ORDERED: Ondansetron HCl 2 MG / ML 2ML Vial IV PRN (11:55)
[2023-12-30 13:31] VITALS: BP 127/77
--- NOTE | 2023-12-30 14:09 | NUR ---
ARRIVED TO ROOM VIA DARLIN CASTELLANOS, TRANSFERRED INDEPENDENTLY TO THE BED, DENIES ANY PAIN OR NAUSEA AT THIS TIME, PT DID REPORT HAVING SOME NAUSEA EARLIER, ORIENTED TO ROOM AND CALL SYSTEM, CT TOOK PT SHORTLY AFTER ARRIVAL TO ROOM FOR DRAIN PLACEMENT.
--- NOTE | 2023-12-30 16:51 | NUR ---
SUMMARY ADMIT FROM ED TODAY, CT GUIDED PLACEMENT OF DRAIN ON APPENDIX, PT RETURNED W/ URACIL DRAIN, PINK TINGED PURULENT DRAINAGE NOTED IN TUBING, SMALL AMOUNT OF PURULENT DRAINAGE NOTED IN URACIL BAG, 2 NORCO GIVEN FOR PAIN ON R SIDE POST PROCEDURE, PT REPORTS SOME NAUSEA, STATES HAVING SOME NAUSEA "OFF AND ON" TODAY PRIOR TO ADMIT, ZOFRAN GIVEN, NO ACUTE CHANGES THIS SHIFT, DR. WALTERS HERE TO SEE PT.
[2023-12-30] MEDS ORDERED: Piperacillin/Tazobactam Sod 3.375 GM in NS 50 ML IV SCH (18:00)
[2023-12-30 20:08] VITALS: BP 115/74
[2023-12-31 02:25] VITALS: BP 128/84
--- NOTE | 2023-12-31 05:18 | NUR ---
SHIFT SUMMARY PT RESTED IN BED DURING THE NIGHT. PAIN MANAGED PER EMAR. PT VOIDING, TOLERATING PO INTAKE. URECIL DRAIN HAS PURULENT OUTPUT. VSS. ABX RUNNING. NO OTHER CONCERNS AT THIS TIME. CALL LIGHT WITHIN REACH
[2023-12-31 07:16] VITALS: BP 111/78
[2023-12-31 14:56] VITALS: BP 120/75
[2023-12-31] MEDS ORDERED: HYDROCODONE-AC1 EA19 PO (16:52)
[2023-12-31] MEDS ORDERED: AMOCLA875 PO (16:52)
--- NOTE | 2023-12-31 17:16 | NUR ---
DISCHARGE: DR. WALTERS IN ROOM AT ABOUT 1630. PT OK TO DC WITH URISEL DRAIN. DC PACKET PRINTED AND PT EDUCATED. PT GIVEN SCRIPTS FOR PAIN MED AND ANTIBIOTIC. IV DC'D WNL, TIP INTACT. LEFT UNIT ON FOOT AT THIS TIME.
== END 2023-12-31 17:05 | disposition home or self-care (01) | DRG 372 ==
LOC: ER 07:11 → SURS 12:59
PROVIDERS: Student in an Organized Health Care Education/Training Program; ADMIT Surgery
DX: K35.33 Acute appendicitis with perforation, localized peritonitis, and gangrene, with abscess (principal); E87.1 Hypo-osmolality and hyponatremia; F17.200 Nicotine dependence, unspecified, uncomplicated; Z87.820 Personal history of traumatic brain injury; Z90.01 Acquired absence of eye
CPT/HCPCS: 49406; 74177; 80053; 83605; 85025; 87070; 87075; 87076; 87077; 87205; 96361; 96365-59; 96375; 99285-25; A9270; J1885; J2405; J2543; J7030; J7120; Q9967

== ENCOUNTER 2025-08-15 16:21 | Inpatient (IN) | payer OTHER ==
[~2025-08-15] VITALS: Ht 167.6 cm; Wt 90.8 kg
[~2025-08-15 16:21] MED LIST changes: +HYDROCODONE-AC1 EA19 PO
[2025-08-15 16:51] LABS: BASOPHILS ABSOLUTE AUTO 0.10 K/mm3 (0.00-0.23); BASOPHILS PERCENT AUTO 0 % (0-2); EOSINOPHILS ABSOLUTE AUTO 0.11 K/mm3 (0.00-0.68); EOSINOPHILS PERCENT AUTO 0 % (0-6); Hematocrit 45.4 % (37.0-53.0); Hemoglobin 16.4 g/dL (13.5-17.5); IMMATURE GRAN ABSOLUTE AUTO 0.68 K/mm3 (0.00-0.10); IMMATURE GRAN PERCENT AUTO 2 % (0-1); LYMPHOCYTES ABSOLUTE AUTO 1.57 K/mm3 (0.84-5.20); LYMPHOCYTES PERCENT AUTO 5 % (21-46); MONOCYTES ABSOLUTE AUTO 1.31 K/mm3 (0.16-1.47); MONOCYTES PERCENT AUTO 4 % (4-13); Mean Corpuscular HGB Conc 36.1 g/dL (31.5-36.5); Mean Corpuscular Volume 78 fL (80-100); NEUTROPHILS ABSOLUTE AUTO 26.71 K/mm3 (1.96-9.15); NEUTROPHILS PERCENT AUTO 88 % (41-73); NRBC ABSOLUTE 0.02 K/mm3 (0.00-0.02); NRBC Auto 0.1 /100 WBC (0.0-0.2); Platelet Count 393 K/mm3 (150-400); RDW Coefficient Variation 12.1 % (11.7-14.2); RDW Standard Deviation 34.4 fL (35.1-46.3)
[2025-08-15] MEDS ORDERED: NS 1,000 ML IV SCH ×2 (17:05→22:00)
[2025-08-15] MEDS ORDERED: Diazepam 5 MG / ML 2ML SYR IV ONE ×2 (17:20→19:10)
[2025-08-15 17:26] LABS: Alanine Aminotransfer (ALT/SGP 146.0 U/L (12-78); Albumin, Blood 3.5 g/dL (3.4-5.0); Albumin/Globulin Ratio 1.0 (0.8-1.8); Anion Gap 19.0 mmol/L (3-11); Aspartate Aminotrans (AST/SGOT 123.0 U/L (12-37); Bilirubin, Total 1.1 mg/dL (0.1-1.0); Blood Urea Nitrogen 13.0 mg/dL (8-24); CO2, Blood 25.0 mmol/L (21-32); Calcium, Blood 7.8 mg/dL (8.5-10.1); Chloride, Blood 86.0 mmol/L (98-108); Creatinine, Blood 1.11 mg/dL (0.60-1.20); Globulin, Blood 3.6 g/dL (2.2-4.0); Glucose, Blood 177.0 mg/dL (70-99); Potassium, Blood 3.1 mmol/L (3.5-5.5); Sodium, Blood 127.0 mmol/L (136-145); Total Protein, Blood 7.1 g/dL (6.4-8.2)
[2025-08-15 18:20] LABS: pH Blood Venous 7.56 (7.34-7.37)
[2025-08-15 19:00] LABS: Magnesium, Blood 1.9 mg/dL (1.6-2.4); Phosphorus, Blood 2.6 mg/dL (2.5-4.9)
[2025-08-15 19:32] LABS: Osmolality, Serum 276.0 mos/KG (275-300)
[2025-08-15] MEDS ORDERED: LORazepam 2 MG/ML 1ML Injection IV PRN ×2 (20:40)
[2025-08-15] MEDS ORDERED: Labetalol HCL 5 MG/ML 4ML Injection (Single Dose) IV PRN (20:45)
[2025-08-15] MEDS ORDERED: Ondansetron HCl 2 MG / ML 2ML Vial IV PRN (20:45)
[2025-08-15] MEDS ORDERED: FLU VACC TS2025-26(6MOS UP)/PF 45 MCG/0.5 ML SYRINGE IM ONE (20:45)
[2025-08-15] MEDS ORDERED: Metoclopramide HCl 5MG / ML 2ML Vial IV PRN (20:45)
[2025-08-15] MEDS ORDERED: Magnesium Sulf 2 GM/Water 50ML 50 ML IV STA (20:54)
[2025-08-15 20:55] LABS: Source, Urine Clean Catch
[2025-08-15] MEDS ORDERED: NS 1,000 ML IV ONE (21:00)
[2025-08-15 21:04] LABS: Bilirubin, Urine Neg (Neg); Color, Urine Yellow (P-Yellow); Glucose Qualitative, Urine Neg (Neg); Ketones, Urine Neg (Neg); Leukocyte Esterase, Urine Neg (Neg); Protein, Urine 1+ (Neg); Specific Gravity, Urine 1.015 (1.003-1.022); Urobilinogen, Urine NORM (Normal)
[2025-08-15 21:11] LABS: White Blood Cells, Urine 0-2 /hpf (0-5)
[2025-08-15 21:26] LABS: U Amphetamine Screen Not Detected; U Barbituate Screen Not Detected; U Benzodiazapine Screen DETECTED; U Buprenorphine Screen Not Detected; U Cannabinoids Screen Not Detected; U Cocaine Screen Not Detected; U Methadone Screen Not Detected; U Methamphetamine Screen Not Detected; U Opiates Screen Not Detected; U Oxycodone Screen Not Detected; U Phencyclidine Screen Not Detected
--- NOTE | 2025-08-15 23:55 | NUR ---
ADMISSION NOTE PATIENT ARRIVED TO PCU 11 VIA STRETCHER. PATIENT IS ALERT AND ORIENTED X4, STAND BY ASSIST REQUIRED FOR LINE MANAGEMENT. PATIENT REPORTS BACK PAIN AND NAUSEA. PATIENT MEDICATED FOR NAUSEA AND CHECK WRITER SALESPERSON RESIDENT INFORMED OF THE PATIENT'S BACK PAIN, TYLENOL PO [phone] [phone] HOURS ORDERED. ON ROOM AIR WITH SPO2 > 90%. PATIENT DENIES SHORTNESS OF BREATH OR CHEST PAIN. VITAL SIGNS STABLE. TREMORS NOTED IN PATIENT'S HANDS, CIWA WAS 6. WILL CONTINUE TO MONITOR. CALL LIGHT WITHIN REACH.
[2025-08-16] VITALS (7 sets, daily range): BP systolic 124–152; BP diastolic 84–99
[2025-08-16 04:34] LABS: BASOPHILS ABSOLUTE AUTO 0.03 K/mm3 (0.00-0.23); BASOPHILS PERCENT AUTO 0 % (0-2); EOSINOPHILS ABSOLUTE AUTO 0.02 K/mm3 (0.00-0.68); EOSINOPHILS PERCENT AUTO 0 % (0-6); Hematocrit 40.9 % (37.0-53.0); Hemoglobin 14.4 g/dL (13.5-17.5); IMMATURE GRAN ABSOLUTE AUTO 0.11 K/mm3 (0.00-0.10); IMMATURE GRAN PERCENT AUTO 1 % (0-1); LYMPHOCYTES ABSOLUTE AUTO 1.42 K/mm3 (0.84-5.20); LYMPHOCYTES PERCENT AUTO 8 % (21-46); MONOCYTES ABSOLUTE AUTO 1.01 K/mm3 (0.16-1.47); MONOCYTES PERCENT AUTO 6 % (4-13); Mean Corpuscular HGB Conc 35.2 g/dL (31.5-36.5); Mean Corpuscular Volume 81 fL (80-100); NEUTROPHILS ABSOLUTE AUTO 15.17 K/mm3 (1.96-9.15); NEUTROPHILS PERCENT AUTO 85 % (41-73); NRBC ABSOLUTE 0.00 K/mm3 (0.00-0.02); NRBC Auto 0.0 /100 WBC (0.0-0.2); Platelet Count 281 K/mm3 (150-400); RDW Coefficient Variation 12.3 % (11.7-14.2); RDW Standard Deviation 36.1 fL (35.1-46.3)
[2025-08-16 04:41] LABS: Anion Gap 10.0 mmol/L (3-11); Blood Urea Nitrogen 11.0 mg/dL (8-24); CO2, Blood 28.0 mmol/L (21-32); Calcium, Blood 7.1 mg/dL (8.5-10.1); Chloride, Blood 98.0 mmol/L (98-108); Creatinine, Blood 1.0 mg/dL (0.60-1.20); Glucose, Blood 126.0 mg/dL (70-99); Magnesium, Blood 2.6 mg/dL (1.6-2.4); Potassium, Blood 3.1 mmol/L (3.5-5.5); Sodium, Blood 133.0 mmol/L (136-145)
--- NOTE | 2025-08-16 05:33 | NUR ---
SHIFT SUMMARY PATIENT ALERT AND ORIENTED. PATIENT CONTINUES TO HAVE INTERMITTENT NAUSEA. MEDICATED PER EMAR FOR BACK PAIN. CIWA AND VITALS CONTINUE TO BE STABLE. WILL CONTINUE TO MONITOR. CALL LIGHT WITHIN REACH.
--- NOTE | 2025-08-16 08:21 | NUR ---
call to this rn called md nails at 0730 to update on potassium of 3.1. placed new orders. see orders
[2025-08-16] MEDS ORDERED: Enoxaparin 40 MG/0.4 ML SYR SC SCH (09:00)
[2025-08-16] MEDS ORDERED: Multivitamins 1 Tab PO SCH (09:00)
[2025-08-16] MEDS ORDERED: Folic Acid 1 MG TAB PO SCH (09:00)
[2025-08-16] MEDS ORDERED: NS 1,000 ML IV SCH (13:50)
--- NOTE | 2025-08-16 16:45 | NUR ---
SHIFT SUMMARY/TRANSFER OF CARE ASSUMED CARE OF PT AT APPROXIMATELY 0700. CIWA'S COMPLETED Q4H. PT GIVEN LIBRIUM PER EMAR FOR ELEVATED CIWA'S. PT C/O BACK PAIN AND WAS GIVEN PAIN MEDICATION PER EMAR. POTASSIUM 3.1. GAVE 40MEQ IV POTASSIUM, PT TOLERATED WELL. PT ON NS AT 150ML/HR. PT IS AOX4, ON RA. ABLE TO MAKE NEEDS KNOWN. PT RESTING COMFORTABLY IN BED. ABLE TO MAKE NEEDS KNOWN AND CALLS APPROPRIATELY FOR ASSISTANCE WHEN NEEDED. NO C/O CHEST PAIN/PRESSURE. NO C/O SOB. TRANSFERRED CARE TO CRISTAL JOSE.
--- NOTE | 2025-08-16 17:17 | NUR ---
assumption of care this rn assumed primary care at 1650 from nelson hatfield rn. vital signs stable. patient is alert and oriented x4. neuro intact. perrla. patient denies chest pain/pressure or pain or shortness of breath. plan for patient to discharge home tomorrow pending labs and how the night goes.
--- NOTE | 2025-08-16 17:48 | NUR ---
shift summary no acute changes since previous note
[2025-08-17] VITALS: BP 141/84
[2025-08-17 04:17] VITALS: BP 141/90
[2025-08-17 04:48] LABS: BASOPHILS ABSOLUTE AUTO 0.04 K/mm3 (0.00-0.23); BASOPHILS PERCENT AUTO 0 % (0-2); EOSINOPHILS ABSOLUTE AUTO 0.03 K/mm3 (0.00-0.68); EOSINOPHILS PERCENT AUTO 0 % (0-6); Hematocrit 37.4 % (37.0-53.0); Hemoglobin 12.9 g/dL (13.5-17.5); IMMATURE GRAN ABSOLUTE AUTO 0.06 K/mm3 (0.00-0.10); IMMATURE GRAN PERCENT AUTO 1 % (0-1); LYMPHOCYTES ABSOLUTE AUTO 1.80 K/mm3 (0.84-5.20); LYMPHOCYTES PERCENT AUTO 20 % (21-46); MONOCYTES ABSOLUTE AUTO 0.59 K/mm3 (0.16-1.47); MONOCYTES PERCENT AUTO 7 % (4-13); Mean Corpuscular HGB Conc 34.5 g/dL (31.5-36.5); Mean Corpuscular Volume 84 fL (80-100); NEUTROPHILS ABSOLUTE AUTO 6.41 K/mm3 (1.96-9.15); NEUTROPHILS PERCENT AUTO 72 % (41-73); NRBC ABSOLUTE 0.00 K/mm3 (0.00-0.02); NRBC Auto 0.0 /100 WBC (0.0-0.2); Platelet Count 189 K/mm3 (150-400); RDW Coefficient Variation 12.5 % (11.7-14.2); RDW Standard Deviation 37.6 fL (35.1-46.3)
--- NOTE | 2025-08-17 05:07 | NUR ---
SHIFT SUMMARY PATIENT ALERT AND ORIENTED X4. MEDICATED PER EMAR WITH TYLENOL FOR BACK PAIN THAT WAS MARGINALLY EFFECTIVE. PATIENT'S CURRENT PAIN LEVEL IS 7/10 AFTER RECEIVING 650 MG TYLENOL ABOUT AN HOUR AGO AND HAVING A HEATING PAD IN PLACE. PATIENT DESCRIBES PAIN IN LOWER BACK TIGHT MUSCULAR PAIN AND WAS ASKING FOR SOMETHING OTHER THAN TYLENOL TO HELP MANAGE HIS PAIN BETTER. THIS RN NOTIFIED ASSISTANT PRINCIPAL RESIDENT, DR LR, OF THE SITUATION ASKING IF A MUSCLE RELAXER COULD BE BENEFICIAL FOR THE PATIENT. NO NEW ORDERS GIVEN AT THIS TIME. PATIENT IS ON ROOM AIR WITH SPO2 >90%. VITAL SIGNS STABLE. WILL CONTINUE TO MONITOR. CALL LIGHT WITHIN REACH.
[2025-08-17 05:26] LABS: Magnesium, Blood 2.3 mg/dL (1.6-2.4)
[2025-08-17 05:29] LABS: Alanine Aminotransfer (ALT/SGP 76.0 U/L (12-78); Albumin, Blood 2.4 g/dL (3.4-5.0); Albumin/Globulin Ratio 0.9 (0.8-1.8); Anion Gap 5.0 mmol/L (3-11); Aspartate Aminotrans (AST/SGOT 62.0 U/L (12-37); Bilirubin, Total 0.6 mg/dL (0.1-1.0); Blood Urea Nitrogen 10.0 mg/dL (8-24); CO2, Blood 30.0 mmol/L (21-32); Calcium, Blood 6.8 mg/dL (8.5-10.1); Chloride, Blood 107.0 mmol/L (98-108); Creatinine, Blood 0.94 mg/dL (0.60-1.20); Globulin, Blood 2.7 g/dL (2.2-4.0); Glucose, Blood 106.0 mg/dL (70-99); Phosphorus, Blood 1.9 mg/dL (2.5-4.9); Potassium, Blood 3.7 mmol/L (3.5-5.5); Sodium, Blood 138.0 mmol/L (136-145)
[2025-08-17 05:30] LABS: Total Protein, Blood 5.1 g/dL (6.4-8.2)
[2025-08-17 07:24] VITALS: BP 131/91
[2025-08-17] MEDS ORDERED: Potassium Phosphate Dibasic 30 MM in Dextrose 5% 500 ML IV STA (08:11)
--- NOTE | 2025-08-17 11:10 | NUR ---
am note this rn assumed care at 0700. vital signs stable. medical status with tele. patient is alert and oriented x4.neuro is intact. perrla. patient reports back pain at 8/10 and this rn called md nails to notifed and new orders for pain medication. upaon reassessment patient pain level at 4/10. patient denies chest pain/pressure or shortness of breath. patient lung sounds clear. patient ciwa this morning 0. see shift assessment for further detials. plan for patient to discharge this afternoon and patient agrees with this plan
[2025-08-17] MEDS ORDERED: B-1100 M1 PO (11:40)
[2025-08-17] MEDS ORDERED: Acetaminophen650 M1 PO (11:40)
[2025-08-17] MEDS ORDERED: ONE DAILY MUL400 MCG PO (11:40)
[2025-08-17 14:11] VITALS: BP 157/98
--- NOTE | 2025-08-17 14:11 | NUR ---
DISCHARGE this rn went over discharge education and to establish primary care provider. pateint verbalized understanding. patient left with all belonging and in no distress. vital signs stable.
== END 2025-08-17 14:13 | disposition home or self-care (01) | DRG 897 ==
LOC: ER 16:21 → PCU 16:22 → ERHOLD 16:22 → ER 16:22 → PCU 16:22 → ERHOLD 22:34 → PCU 08-16 15:43
PROVIDERS: Emergency Medicine; Internal Medicine; Nurse Practitioner Acute Care; Student in an Organized Health Care Education/Training Program; ADMIT Internal Medicine
DX: F10.232 Alcohol dependence with withdrawal with perceptual disturbance (principal); G40.89 Other seizures; E87.1 Hypo-osmolality and hyponatremia; E87.20 Acidosis, unspecified; D72.829 Elevated white blood cell count, unspecified; E87.6 Hypokalemia; E83.39 Other disorders of phosphorus metabolism; G93.89 Other specified disorders of brain; F17.210 Nicotine dependence, cigarettes, uncomplicated; E87.8 Other disorders of electrolyte and fluid balance, not elsewhere classified
CPT/HCPCS: 36415; 70450; 71045; 76705; 80048; 80053; 81001; 82010; 82803; 83605; 83690; 83735; 83930; 84100; 84484; 85025; 93005; 93010; 96361; 96365; 96372; 96375; 96376; 99285-25; A9270; G0378; J1650; J2405; J2765; J3360; J3475; J3480; J7030; J7050; J7060